=== PATIENT | male | born 1960 | race Caucasian/White ===

== ENCOUNTER 2018-06-15 11:02 | Emergency (ER) | payer MEDICARE ==
[~2018-06-15] VITALS: Ht 167.6 cm; Wt 73.9 kg
[~2018-06-15 11:02] MED LIST: Eliquis PO; ISOSORBIDE DINI30 MG PO; LIPITOR40 MG PO; Lopressor25 MG PO; MEDROL DOSEPAK4 MG PO; METHYLPREDNISONE4 MG PO; NKHM PO; OXYBUTYNIN5 MG PO; PROPAFENONE HC150 MG PO; SYMBICORT1 AE1 INH; TOBREX OPHTH S2.5 ML OPH; ULTRAM50 MG PO; VIBRAMYCIN100 MG PO; XARE20MG PO; Zestril,Prinivil5 MG PO
[2018-06-15] MEDS ORDERED: PREDNISONE10 MG PO (11:14)
== END 2018-06-15 11:44 | disposition home or self-care (01) ==
LOC: ED 11:02
DX: M77.9 Enthesopathy, unspecified (principal); Z79.899 Other long term (current) drug therapy

== ENCOUNTER 2018-08-21 11:51 | Inpatient (IN) | payer MEDICARE ==
[~2018-08-21] VITALS: Wt 69.9 kg
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
--- NOTE | ~2018-08-21 | EKG ---
[place], [place] ELECTROCARDIOGRAM REPORT NAME: ETHEL SWARTZ UNIT #: [id number] ROOM: 420 DOCTOR: THO DRAFT REPORT BIRTHDATE: [birth year] [facility] Test Date: 2018-08-21 Test Time: 12:19:48 Pat Name: ETHEL SWARTZ Department: Room: 420 Gender: M [employer]: RAD : 1960 Requested By: SUHAIL WOOTEN Order Number: [id number] Reading MD: Pamela Mayberry MD Measurements Intervals [place] Rate: 73 P: 67 VA: 147 QRS: 48 QRSD: 83 T: 49 QT: 390 QTc: 430 Interpretive Statements Sinus rhythm Normal ECG Electronically Signed On 08-23-2018 12:23:10 PDT by Pamela Mayberry MD CM:EKGRPT:ELECTROCARDIOGRAM REPORT [id number] SUHAIL NETTLES DRAFT REPORT SUHAIL WOOTEN MD
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
[~2018-08-21 11:51] MED LIST changes: +PREDNISONE10 MG PO
[2018-08-21 11:53] VITALS: BP 102/67
[2018-08-21 12:28] LABS: BASO % 0.1 % (0.0-1.0); EOS % 0.1 % (1.0-4.0); HEMATOCRIT 45.4 % (42.0-52.0); HEMOGLOBIN 15.7 g/dl (14.0-18.0); LYMPH # 1.7 10*3/uL (1.3-4.4); LYMPH % 19.5 % (27.0-41.0); MEAN CELL VOLUME 93.8 fl (80.0-94.0); MEAN CORPUSCULAR HGB 32.4 pg (27.0-31.0); MEAN CORPUSCULAR HGB CONC 34.6 g/dl (33.0-37.0); MEAN PLATELET VOLUME 9.4 fl (9.6-12.3); MONO # 0.8 10*3/uL (0.1-1.0); MONO % 8.7 % (3.0-9.0); NEUT # 6.2 10*3/uL (2.3-7.9); NEUT % 71.4 % (47.0-73.0); PLATELET COUNT AUTOMATED 144 10*3/uL (130-400); RED BLOOD COUNT 4.84 10*6/uL (4.50-5.90); RED CELL DISTRI WIDTH 12.9 % (0-14.5); WHITE BLOOD COUNT 8.6 10*3/uL (4.8-10.8)
[2018-08-21 12:41] LABS: ACT PARTIAL THROMBO TIME 25.7 SECONDS (20.8-31.5)
[2018-08-21 12:45] LABS: ALBUMIN 3.8 gm/dl (3.1-4.5); ALKALINE PHOSPHATASE 62 U/L (45-117); BUN 13 mg/dl (7-24); CHLORIDE 100 mmol/L (98-107); CREATININE 1.05 mg/dL (0.70-1.30); POTASSIUM 4.7 mmol/L (3.5-5.1); SGOT/AST 45 IU/L (3-35); SGPT/ALT 38 U/L (12-78); SODIUM 132 mmol/L (136-145)
[2018-08-21 12:46] LABS: ETHYL ALCOHOL < 3.0 mg/dl (<3); TROPONIN I < 0.015 ng/ml (<0.045)
[2018-08-21 13:19] LABS: BILIRUBIN NEGATIVE (NEGATIVE); BLOOD TRACE-INTACT (NEGATIVE); CLARITY CLEAR (CLEAR); COLOR YELLOW (YELLOW); GLUCOSE NEGATIVE (NEGATIVE); KETONE 1+ (NEGATIVE); LEUKO ESTERASE NEGATIVE (NEGATIVE); NITRITE NEGATIVE (NEGATIVE); SPECIFIC GRAVITY 1.015 (1.005-1.030); UROBILINOGEN 0.2 E.U./dl (0.2-1.0)
[2018-08-21 13:20] LABS: BACTERIA TRACE; EPITHELIAL CELLS 0-2; MUCOUS 1+; WBC 0-2 wbc/hpf (0-5)
[2018-08-21 15:19] VITALS: BP 110/70
[2018-08-21 16:20] VITALS: BP 120/72
[2018-08-21 16:40] VITALS: BP 102/70
[2018-08-21] MEDS ORDERED: CARVEDILOL6.25 MG PO (16:55)
[2018-08-21 20:00] VITALS: BP 98/71
[2018-08-22] VITALS: BP 92/46
[2018-08-22 06:46] LABS: BASO % 0.3 % (0.0-1.0); EOS # 0.1 10*3/uL (0.0-0.4); EOS % 0.8 % (1.0-4.0); HEMATOCRIT 44.3 % (42.0-52.0); LYMPH # 1.8 10*3/uL (1.3-4.4); LYMPH % 24.2 % (27.0-41.0); MEAN CELL VOLUME 94.1 fl (80.0-94.0); MEAN CORPUSCULAR HGB 31.8 pg (27.0-31.0); MEAN CORPUSCULAR HGB CONC 33.9 g/dl (33.0-37.0); MEAN PLATELET VOLUME 10.3 fl (9.6-12.3); MONO # 0.8 10*3/uL (0.1-1.0); MONO % 10.4 % (3.0-9.0); NEUT # 4.7 10*3/uL (2.3-7.9); NEUT % 63.6 % (47.0-73.0); PLATELET COUNT AUTOMATED 120 10*3/uL (130-400); RED BLOOD COUNT 4.71 10*6/uL (4.50-5.90); RED CELL DISTRI WIDTH 12.9 % (0-14.5); WHITE BLOOD COUNT 7.4 10*3/uL (4.8-10.8)
[2018-08-22 07:18] LABS: BUN 14 mg/dl (7-24); CHLORIDE 103 mmol/L (98-107); CHOLESTEROL 103 mg/dL (<200); CREATININE 0.94 mg/dL (0.70-1.30); FREE T4 1.47 ng/dl (0.76-1.46); HDL CHOLESTEROL 51 mg/dl (40-60); LDL CHOLESTEROL 40 mg/dL (9-159); PHOSPHOROUS 2.5 mg/dL (2.5-4.9); POTASSIUM 4.1 mmol/L (3.5-5.1); SODIUM 137 mmol/L (136-145); TRIGLYCERIDES 58 mg/dl (<150); VLDL CHOLESTEROL 12 mg/dL (6-40)
[2018-08-22 08:00] VITALS: BP 108/68
[2018-08-22 12:00] VITALS: BP 100/66
[2018-08-22 16:00] VITALS: BP 92/64
[2018-08-22 20:00] VITALS: BP 96/66
[2018-08-23] VITALS: BP 99/59
[2018-08-23 08:00] VITALS: BP 105/75
[2018-08-23 12:00] VITALS: BP 100/54
[2018-08-23 16:00] VITALS: BP 95/60
[2018-08-23 20:00] VITALS: BP 100/66
[2018-08-24] VITALS: BP 100/40; BP 100/60; BP 78/45
[2018-08-24 08:00] VITALS: BP 115/74
[2018-08-24 12:00] VITALS: BP 98/67
[2018-08-24] MEDS ORDERED: HYDROCODONE-AC1 EAC1 PO (12:55)
== END 2018-08-24 13:40 | disposition home health service (06) | DRG 205 ==
LOC: ED 11:51 → EDHOLD 15:15 → 4E 15:15
PROVIDERS: Emergency Medicine; Student in an Organized Health Care Education/Training Program
DX: S22.32XA Fracture of one rib, left side, initial encounter for closed fracture (principal); S72.115A Nondisplaced fracture of greater trochanter of left femur, initial encounter for closed fracture; E87.1 Hypo-osmolality and hyponatremia; I48.92 Unspecified atrial flutter; M16.12 Unilateral primary osteoarthritis, left hip; R74.0 Nonspecific elevation of levels of transaminase and lactic acid dehydrogenase [LDH]; I48.91 Unspecified atrial fibrillation; J44.9 Chronic obstructive pulmonary disease, unspecified; I10 Essential (primary) hypertension; R26.2 Difficulty in walking, not elsewhere classified; E83.41 Hypermagnesemia; Z83.6 Family history of other diseases of the respiratory system; E78.5 Hyperlipidemia, unspecified; R82.4 Acetonuria; D72.810 Lymphocytopenia; I25.10 Atherosclerotic heart disease of native coronary artery without angina pectoris; Z79.01 Long term (current) use of anticoagulants; Z98.41 Cataract extraction status, right eye; Z98.42 Cataract extraction status, left eye; Z95.5 Presence of coronary angioplasty implant and graft; Z71.6 Tobacco abuse counseling; Z72.0 Tobacco use; V69.9XXA Occupant (driver) (passenger) of heavy transport vehicle injured in unspecified traffic accident, initial encounter; Y93.89 Activity, other specified; Y92.89 Other specified places as the place of occurrence of the external cause; Y99.8 Other external cause status

== ENCOUNTER 2019-08-02 14:22 | Inpatient (IN) | payer MEDICARE ==
[~2019-08-02] VITALS: Ht 172.7 cm; Wt 69.5 kg
[~2019-08-02 14:22] MED LIST changes: +CARVEDILOL6.25 MG PO; +HYDROCODONE-AC1 EAC1 PO
[2019-08-02 14:56] VITALS: BP 102/77
[2019-08-02 15:19] LABS: BASO % 0.4 % (0.0-1.0); EOS # 0.1 10*3/uL (0.0-0.4); EOS % 1.3 % (1.0-4.0); HEMATOCRIT 50.4 % (42.0-52.0); HEMOGLOBIN 17.1 g/dl (14.0-18.0); LYMPH # 3.4 10*3/uL (1.3-4.4); LYMPH % 47.1 % (27.0-41.0); MEAN CELL VOLUME 96.9 fl (80.0-94.0); MEAN CORPUSCULAR HGB 32.9 pg (27.0-31.0); MEAN CORPUSCULAR HGB CONC 33.9 g/dl (33.0-37.0); MEAN PLATELET VOLUME 10.4 fl (9.6-12.3); MONO # 0.5 10*3/uL (0.1-1.0); MONO % 7.3 % (3.0-9.0); NEUT # 3.1 10*3/uL (2.3-7.9); NEUT % 43.8 % (47.0-73.0); PLATELET COUNT AUTOMATED 133 10*3/uL (130-400); RED CELL DISTRI WIDTH 13.5 % (0-14.5); WHITE BLOOD COUNT 7.2 10*3/uL (4.8-10.8)
[2019-08-02 15:34] LABS: ALBUMIN 3.8 gm/dl (3.1-4.5); ALKALINE PHOSPHATASE 81 U/L (45-117); BUN 15 mg/dl (7-24); CHLORIDE 108 mmol/L (98-107); CREATININE 1.08 mg/dL (0.70-1.30); POTASSIUM 4.2 mmol/L (3.5-5.1); SGOT/AST 17 IU/L (3-35); SGPT/ALT 33 U/L (12-78); SODIUM 140 mmol/L (136-145); TOTAL PROTEIN 6.6 gm/dL (6.4-8.2)
[2019-08-02 16:00] VITALS: BP 102/74
[2019-08-02 20:00] VITALS: BP 133/62; BP 94/69
[2019-08-02 22:15] VITALS: BP 92/62
[2019-08-02 23:25] VITALS: BP 96/60
[2019-08-03] VITALS (8 sets, daily range): BP systolic 88–112; BP diastolic 46–70
[2019-08-03 06:03] LABS: BASO % 0.3 % (0.0-1.0); EOS # 0.1 10*3/uL (0.0-0.4); HEMATOCRIT 45.4 % (42.0-52.0); HEMOGLOBIN 15.3 g/dl (14.0-18.0); LYMPH # 2.6 10*3/uL (1.3-4.4); LYMPH % 43.1 % (27.0-41.0); MEAN CELL VOLUME 95.4 fl (80.0-94.0); MEAN CORPUSCULAR HGB 32.1 pg (27.0-31.0); MEAN CORPUSCULAR HGB CONC 33.7 g/dl (33.0-37.0); MEAN PLATELET VOLUME 10.6 fl (9.6-12.3); MONO # 0.4 10*3/uL (0.1-1.0); MONO % 6.1 % (3.0-9.0); NEUT % 49.2 % (47.0-73.0); PLATELET COUNT AUTOMATED 108 10*3/uL (130-400); RED BLOOD COUNT 4.76 10*6/uL (4.50-5.90); RED CELL DISTRI WIDTH 13.5 % (0-14.5); WHITE BLOOD COUNT 6.1 10*3/uL (4.8-10.8)
[2019-08-03 06:26] LABS: BUN 16 mg/dl (7-24); CHLORIDE 109 mmol/L (98-107); CHOLESTEROL 89 mg/dL (<200); CREATININE 0.89 mg/dL (0.70-1.30); PHOSPHOROUS 3.4 mg/dL (2.5-4.9); POTASSIUM 4.2 mmol/L (3.5-5.1); SODIUM 141 mmol/L (136-145); TRIGLYCERIDES 67 mg/dl (<150); VLDL CHOLESTEROL 13 mg/dL (6-40)
[2019-08-03 06:36] LABS: HDL CHOLESTEROL 40 mg/dl (40-60); LDL CHOLESTEROL 36 mg/dL (9-159); THYROID STIM HORMONE (HS) 0.815 uIU/ml (0.358-4.75)
[2019-08-03 06:42] LABS: ACT PARTIAL THROMBO TIME 35.5 SECONDS (20.0-32.1); INTERNATIONAL NORM RATIO 1.1 (2.0-3.5)
[2019-08-03 07:22] LABS: VITAMIN D, 25-HYDROXY 31.1 ng/mL (30-100)
[2019-08-04] VITALS: BP 109/64
[2019-08-04 12:00] VITALS: BP 94/62
[2019-08-04] MEDS ORDERED: PROPAFENONE HC225 MG PO (12:58)
[2019-08-04] MEDS ORDERED: XARE20MG PO (12:58)
[2019-08-04] MEDS ORDERED: LOPRESSOR25 MG PO (12:59)
== END 2019-08-04 13:54 | disposition home or self-care (01) | DRG 310 ==
LOC: 4E 14:22
PROVIDERS: Student in an Organized Health Care Education/Training Program; ADMIT Internal Medicine
DX: I48.91 Unspecified atrial fibrillation (principal); I10 Essential (primary) hypertension; I25.10 Atherosclerotic heart disease of native coronary artery without angina pectoris; I48.92 Unspecified atrial flutter; E78.5 Hyperlipidemia, unspecified; J43.9 Emphysema, unspecified; I95.9 Hypotension, unspecified; E53.8 Deficiency of other specified B group vitamins; Z98.42 Cataract extraction status, left eye; Z98.41 Cataract extraction status, right eye; I25.2 Old myocardial infarction; Z72.0 Tobacco use; Z95.5 Presence of coronary angioplasty implant and graft; Z82.49 Family history of ischemic heart disease and other diseases of the circulatory system; Z83.6 Family history of other diseases of the respiratory system; Z84.89 Family history of other specified conditions; Z79.899 Other long term (current) drug therapy; Z71.6 Tobacco abuse counseling

== ENCOUNTER → 2019-09-27 | Outpatient (CLI) | payer MEDICARE ==
[~2019-09-27] MED LIST changes: +LOPRESSOR25 MG PO; +PROPAFENONE HC225 MG PO
== END | disposition home or self-care (01) ==
LOC: LAB 16:08
DX: I48.91 Unspecified atrial fibrillation (principal)

== ENCOUNTER 2020-05-06 12:53 | Emergency (ER) | payer MEDICARE ==
[~2020-05-06] VITALS: Ht 172.7 cm; Wt 76.2 kg
[2020-05-06 14:01] LABS: BASO % 0.1 % (0.0-1.0); EOS # 0.1 10*3/uL (0.0-0.4); EOS % 0.5 % (1.0-4.0); HEMATOCRIT 46.6 % (42.0-52.0); LYMPH # 2.1 10*3/uL (1.3-4.4); LYMPH % 15.2 % (27.0-41.0); MEAN CELL VOLUME 96.7 fl (80.0-94.0); MEAN CORPUSCULAR HGB 32.2 pg (27.0-31.0); MEAN CORPUSCULAR HGB CONC 33.3 g/dl (33.0-37.0); MEAN PLATELET VOLUME 9.9 fl (9.6-12.3); MONO # 1.4 10*3/uL (0.1-1.0); MONO % 10.1 % (3.0-9.0); NEUT # 10.1 10*3/uL (2.3-7.9); NEUT % 73.7 % (47.0-73.0); PLATELET COUNT AUTOMATED 125 10*3/uL (130-400); RED BLOOD COUNT 4.82 10*6/uL (4.50-5.90); RED CELL DISTRI WIDTH 13.1 % (0-14.5); WHITE BLOOD COUNT 13.7 10*3/uL (4.8-10.8)
[2020-05-06 14:17] LABS: ALBUMIN 3.4 gm/dl (3.1-4.5); ALKALINE PHOSPHATASE 64 U/L (45-117); BUN 14 mg/dl (7-24); CHLORIDE 106 mmol/L (98-107); POTASSIUM 4.7 mmol/L (3.5-5.1); SGOT/AST 14 IU/L (3-35); SGPT/ALT 25 U/L (12-78); SODIUM 137 mmol/L (136-145); TOTAL PROTEIN 6.7 gm/dL (6.4-8.2)
[2020-05-06 14:41] LABS: BILIRUBIN NEGATIVE (NEGATIVE); BLOOD 3+ (NEGATIVE); CLARITY SL CLOUDY (CLEAR); COLOR YELLOW (YELLOW); GLUCOSE NEGATIVE (NEGATIVE); KETONE NEGATIVE (NEGATIVE); UROBILINOGEN 0.2 E.U./dl (0.2-1.0)
[2020-05-06 14:42] LABS: LEUKO ESTERASE 1+ (NEGATIVE); NITRITE NEGATIVE (NEGATIVE)
[2020-05-06 14:51] LABS: BACTERIA 2+; EPITHELIAL CELLS 0-2; MUCOUS 1+; RBC 0-2 rbc/hpf (0-2); WBC TNTC wbc/hpf (0-5)
[2020-05-06] MEDS ORDERED: SEPTDS PO (15:11)
== END 2020-05-06 15:50 | disposition home or self-care (01) ==
LOC: ED 12:53
PROVIDERS: Physician Assistant
DX: N39.0 Urinary tract infection, site not specified (principal); I25.2 Old myocardial infarction; I25.10 Atherosclerotic heart disease of native coronary artery without angina pectoris; I11.0 Hypertensive heart disease with heart failure; I50.9 Heart failure, unspecified; J44.9 Chronic obstructive pulmonary disease, unspecified; I48.92 Unspecified atrial flutter; E78.5 Hyperlipidemia, unspecified; Z79.899 Other long term (current) drug therapy

== ENCOUNTER → 2020-11-07 | Outpatient (CLI) | payer MEDICARE ==
[~2020-11-07] MED LIST changes: +SEPTDS PO
[2020-11-07 10:45] LABS: BASO % 0.4 % (0.0-1.0); EOS # 0.1 10*3/uL (0.0-0.4); HEMATOCRIT 49.7 % (42.0-52.0); LYMPH # 2.3 10*3/uL (1.3-4.4); LYMPH % 33.5 % (27.0-41.0); MEAN CELL VOLUME 95.2 fl (80.0-94.0); MEAN CORPUSCULAR HGB 30.8 pg (27.0-31.0); MEAN CORPUSCULAR HGB CONC 32.4 g/dl (33.0-37.0); MEAN PLATELET VOLUME 9.9 fl (9.6-12.3); MONO # 0.5 10*3/uL (0.1-1.0); MONO % 7.9 % (3.0-9.0); NEUT # 3.9 10*3/uL (2.3-7.9); NEUT % 57.1 % (47.0-73.0); PLATELET COUNT AUTOMATED 153 10*3/uL (130-400); RED BLOOD COUNT 5.22 10*6/uL (4.50-5.90); WHITE BLOOD COUNT 6.8 10*3/uL (4.8-10.8)
[2020-11-07 11:21] LABS: ALBUMIN 3.6 gm/dl (3.1-4.5); BUN 14 mg/dl (7-24); CHLORIDE 107 mmol/L (98-107); CREATININE 1.05 mg/dL (0.70-1.30); POTASSIUM 4.7 mmol/L (3.5-5.1); SGOT/AST 17 IU/L (3-35); SGPT/ALT 33 U/L (12-78); SODIUM 138 mmol/L (136-145)
[2020-11-07 11:36] LABS: ALKALINE PHOSPHATASE 78 U/L (45-117); DIGOXIN 2.03 ng/ml (0.8-2.0); TOTAL PROTEIN 6.7 gm/dL (6.4-8.2)
== END | disposition home or self-care (01) ==
LOC: LAB 10:19
PROVIDERS: ATTEND Internal Medicine Cardiovascular Disease
DX: I25.10 Atherosclerotic heart disease of native coronary artery without angina pectoris (principal)

== ENCOUNTER 2022-01-25 08:08 | Emergency (ER) | payer MEDICARE, OTHER ==
[~2022-01-25] VITALS: Ht 162.5 cm; Wt 70.3 kg
[2022-01-25 08:36] LABS: BILIRUBIN Negative (Negative); BLOOD 2+ (Negative); CLARITY Cloudy (Clear); COLOR Yellow (Yellow); GLUCOSE Negative (Negative); KETONE Negative (Negative); LEUKO ESTERASE 3+ (Negative); NITRITE Negative (Negative)
[2022-01-25 09:08] LABS: BACTERIA TRACE; MUCOUS TRACE; WBC 16-20 wbc/hpf (0-5)
[2022-01-25 09:24] LABS: BASO % 0.1 % (0.0-1.0); EOS % 0.1 % (1.0-4.0); HEMATOCRIT 48.3 % (42.0-52.0); LYMPH # 1.4 10*3/uL (1.3-4.4); LYMPH % 10.5 % (27.0-41.0); MEAN CELL VOLUME 93.2 fl (80.0-94.0); MEAN CORPUSCULAR HGB 31.5 pg (27.0-31.0); MEAN CORPUSCULAR HGB CONC 33.7 g/dl (33.0-37.0); MEAN PLATELET VOLUME 9.7 fl (9.6-12.3); MONO # 0.8 10*3/uL (0.1-1.0); MONO % 5.6 % (3.0-9.0); NEUT # 11.5 10*3/uL (2.3-7.9); NEUT % 83.4 % (47.0-73.0); PLATELET COUNT AUTOMATED 137 10*3/uL (130-400); RED BLOOD COUNT 5.18 10*6/uL (4.50-5.90); RED CELL DISTRI WIDTH 13.1 % (0-14.5); WHITE BLOOD COUNT 13.8 10*3/uL (4.8-10.8)
[2022-01-25 09:36] LABS: BUN 12 mg/dl (7-24); CHLORIDE 106 mmol/L (98-107); CREATININE 1.02 mg/dL (0.70-1.30); POTASSIUM 4.6 mmol/L (3.5-5.1); SODIUM 137 mmol/L (136-145)
[2022-01-25] MEDS ORDERED: MACROBID100 M1 PO (09:46)
== END 2022-01-25 09:48 | disposition home or self-care (01) ==
LOC: ED 08:08
PROVIDERS: Emergency Medicine
DX: R30.0 Dysuria (principal); J44.9 Chronic obstructive pulmonary disease, unspecified; E78.5 Hyperlipidemia, unspecified; F17.210 Nicotine dependence, cigarettes, uncomplicated; I10 Essential (primary) hypertension; I48.91 Unspecified atrial fibrillation; I25.2 Old myocardial infarction; Z79.899 Other long term (current) drug therapy; Z98.890 Other specified postprocedural states

== ENCOUNTER 2023-03-12 11:30 | Emergency (ER) | payer OTHER ==
[~2023-03-12] VITALS: Ht 162.5 cm; Wt 72.1 kg
[~2023-03-12 11:30] MED LIST changes: +MACROBID100 M1 PO
[2023-03-12 13:09] LABS: BASO % 0.3 % (0.0-1.0); EOS # 0.1 10*3/uL (0.0-0.4); EOS % 1.5 % (1.0-4.0); HEMATOCRIT 54.8 % (42.0-52.0); LYMPH # 3.2 10*3/uL (1.3-4.4); LYMPH % 43.1 % (27.0-41.0); MEAN CELL VOLUME 96.3 fl (80.0-94.0); MEAN CORPUSCULAR HGB 31.8 pg (27.0-31.0); MEAN PLATELET VOLUME 10.4 fl (9.6-12.3); MONO # 0.4 10*3/uL (0.1-1.0); MONO % 5.3 % (3.0-9.0); NEUT # 3.7 10*3/uL (2.3-7.9); NEUT % 49.7 % (47.0-73.0); PLATELET COUNT AUTOMATED 151 10*3/uL (130-400); RED BLOOD COUNT 5.69 10*6/uL (4.50-5.90); WHITE BLOOD COUNT 7.5 10*3/uL (4.8-10.8)
[2023-03-12 13:26] LABS: ALKALINE PHOSPHATASE 95 U/L (46-116); BUN 16 mg/dl (9-23); CHLORIDE 106 mmol/L (98-107); LIPASE 39 U/L (12-53); POTASSIUM 5.1 mmol/L (3.4-5.1); SGPT/ALT 27 U/L (10-49); TOTAL PROTEIN 6.8 gm/dL (6.0-8.0)
[2023-03-12 13:34] LABS: ACT PARTIAL THROMBO TIME 37.5 SECONDS (20.0-32.1); INTERNATIONAL NORM RATIO 1.3 (2.0-3.5)
== END 2023-03-12 15:59 | disposition left against medical advice (07) ==
LOC: ED 11:30
PROVIDERS: Emergency Medicine
DX: I48.20 Chronic atrial fibrillation, unspecified (principal); I25.2 Old myocardial infarction; I25.10 Atherosclerotic heart disease of native coronary artery without angina pectoris; I50.9 Heart failure, unspecified; I11.0 Hypertensive heart disease with heart failure; J44.9 Chronic obstructive pulmonary disease, unspecified; Z98.42 Cataract extraction status, left eye; Z98.41 Cataract extraction status, right eye; Z98.890 Other specified postprocedural states; F17.200 Nicotine dependence, unspecified, uncomplicated

== ENCOUNTER 2023-03-17 15:31 | Inpatient (IN) | payer OTHER ==
[~2023-03-17] VITALS: Ht 165.1 cm; Wt 72.1 kg
[2023-03-17 16:01] LABS: BASO % 0.4 % (0.0-1.0); EOS # 0.1 10*3/uL (0.0-0.4); EOS % 1.8 % (1.0-4.0); HEMATOCRIT 52.2 % (42.0-52.0); LYMPH % 39.9 % (27.0-41.0); MEAN CELL VOLUME 95.8 fl (80.0-94.0); MEAN CORPUSCULAR HGB 32.7 pg (27.0-31.0); MEAN CORPUSCULAR HGB CONC 34.1 g/dl (33.0-37.0); MEAN PLATELET VOLUME 10.1 fl (9.6-12.3); MONO # 0.7 10*3/uL (0.1-1.0); MONO % 8.9 % (3.0-9.0); NEUT # 3.7 10*3/uL (2.3-7.9); NEUT % 48.7 % (47.0-73.0); PLATELET COUNT AUTOMATED 135 10*3/uL (130-400); RED BLOOD COUNT 5.45 10*6/uL (4.50-5.90); RED CELL DISTRI WIDTH 13.8 % (0-14.5); WHITE BLOOD COUNT 7.6 10*3/uL (4.8-10.8)
[2023-03-17 16:03] VITALS: BP 117/87
[2023-03-17 16:12] LABS: ACT PARTIAL THROMBO TIME 39.1 SECONDS (20.0-32.1); INTERNATIONAL NORM RATIO 1.3 (2.0-3.5)
[2023-03-17 16:27] LABS: ALKALINE PHOSPHATASE 91 U/L (46-116); BUN 18 mg/dl (9-23); CHLORIDE 106 mmol/L (98-107); LIPASE 46 U/L (12-53); POTASSIUM 4.6 mmol/L (3.4-5.1); SGPT/ALT 22 U/L (10-49); TOTAL PROTEIN 6.6 gm/dL (6.0-8.0)
[2023-03-17] MEDS ORDERED: METOPROLOL SUCC50 M1 PO (18:12)
[2023-03-17] MEDS ORDERED: VITAMIN D350 MCG PO (18:13)
[2023-03-17] MEDS ORDERED: SOTALOL HYDROC120 MG PO (18:13)
[2023-03-17] MEDS ORDERED: CARTIA XT120 MG PO (18:14)
[2023-03-17] MEDS ORDERED: PROVENTIL HFA6.7 GM INH (18:17)
[2023-03-17 21:35] VITALS: BP 117/87
[2023-03-17 22:40] VITALS: BP 114/66
[2023-03-17 23:08] VITALS: BP 114/66
[2023-03-18] VITALS (14 sets, daily range): BP systolic 96–115; BP diastolic 68–83
[2023-03-18 05:31] LABS: ALKALINE PHOSPHATASE 82 U/L (46-116); BUN 14 mg/dl (9-23); CHLORIDE 106 mmol/L (98-107); POTASSIUM 4.6 mmol/L (3.4-5.1); SGPT/ALT 22 U/L (10-49); TOTAL PROTEIN 6.3 gm/dL (6.0-8.0)
[2023-03-18 06:13] LABS: BASO % 0.5 % (0.0-1.0); EOS # 0.2 10*3/uL (0.0-0.4); EOS % 2.3 % (1.0-4.0); LYMPH # 2.6 10*3/uL (1.3-4.4); LYMPH % 39.1 % (27.0-41.0); MEAN CORPUSCULAR HGB 32.1 pg (27.0-31.0); MEAN CORPUSCULAR HGB CONC 33.4 g/dl (33.0-37.0); MEAN PLATELET VOLUME 10.6 fl (9.6-12.3); MONO # 0.5 10*3/uL (0.1-1.0); MONO % 8.1 % (3.0-9.0); NEUT # 3.3 10*3/uL (2.3-7.9); NEUT % 49.7 % (47.0-73.0); PLATELET COUNT AUTOMATED 135 10*3/uL (130-400); RED BLOOD COUNT 5.52 10*6/uL (4.50-5.90); RED CELL DISTRI WIDTH 13.9 % (0-14.5); WHITE BLOOD COUNT 6.6 10*3/uL (4.8-10.8)
[2023-03-18] MEDS ORDERED: ATORVASTATIN CA40 M1 PO (09:23)
[2023-03-19] VITALS: BP 119/75
[2023-03-19 06:43] LABS: ALKALINE PHOSPHATASE 92 U/L (46-116); BASO % 0.4 % (0.0-1.0); BUN 12 mg/dl (9-23); CHLORIDE 107 mmol/L (98-107); EOS # 0.1 10*3/uL (0.0-0.4); EOS % 1.5 % (1.0-4.0); HEMATOCRIT 53.7 % (42.0-52.0); LYMPH # 2.2 10*3/uL (1.3-4.4); LYMPH % 26.6 % (27.0-41.0); MEAN CELL VOLUME 96.4 fl (80.0-94.0); MEAN CORPUSCULAR HGB 32.5 pg (27.0-31.0); MEAN CORPUSCULAR HGB CONC 33.7 g/dl (33.0-37.0); MEAN PLATELET VOLUME 10.6 fl (9.6-12.3); MONO # 0.7 10*3/uL (0.1-1.0); MONO % 8.2 % (3.0-9.0); NEUT # 5.2 10*3/uL (2.3-7.9); NEUT % 63.1 % (47.0-73.0); PLATELET COUNT AUTOMATED 121 10*3/uL (130-400); POTASSIUM 5.3 mmol/L (3.4-5.1); RED BLOOD COUNT 5.57 10*6/uL (4.50-5.90); RED CELL DISTRI WIDTH 13.7 % (0-14.5); SGPT/ALT 31 U/L (10-49); TOTAL PROTEIN 6.2 gm/dL (6.0-8.0); WHITE BLOOD COUNT 8.2 10*3/uL (4.8-10.8)
[2023-03-19 08:00] VITALS: BP 110/68
[2023-03-19 12:00] VITALS: BP 112/64
[2023-03-19] MEDS ORDERED: METOPROLOL SUCC50 M1 PO (13:57)
[2023-03-19] MEDS ORDERED: JARDIANCE10 MG PO (13:57)
[2023-03-19] MEDS ORDERED: SOTALOL HYDROC120 MG PO (13:57)
[2023-03-19] MEDS ORDERED: CARTIA XT120 MG PO (13:57)
== END 2023-03-19 16:39 | disposition home or self-care (01) | DRG 310 ==
LOC: ED 15:31 → EDHOLD 17:14 → 4E 17:14 → EDHOLD 19:46 → 4E 03-18 14:45
PROVIDERS: Emergency Medicine; ADMIT Internal Medicine; ATTEND Internal Medicine
DX: I48.91 Unspecified atrial fibrillation (principal); I10 Essential (primary) hypertension; I48.92 Unspecified atrial flutter; I48.19 Other persistent atrial fibrillation; I42.9 Cardiomyopathy, unspecified; D75.1 Secondary polycythemia; E53.8 Deficiency of other specified B group vitamins; J44.9 Chronic obstructive pulmonary disease, unspecified; I25.10 Atherosclerotic heart disease of native coronary artery without angina pectoris; E78.5 Hyperlipidemia, unspecified; F17.210 Nicotine dependence, cigarettes, uncomplicated; Z71.6 Tobacco abuse counseling; Z95.5 Presence of coronary angioplasty implant and graft; Z79.51 Long term (current) use of inhaled steroids

== ENCOUNTER 2024-09-27 14:52 | Emergency (ER) | payer OTHER ==
[~2024-09-27] VITALS: Ht 162.5 cm; Wt 73.5 kg
[~2024-09-27 14:52] MED LIST changes: +ATORVASTATIN CA40 M1 PO; +CARTIA XT120 MG PO; +JARDIANCE10 MG PO; +METOPROLOL SUCC50 M1 PO; +PROVENTIL HFA6.7 GM INH; +SOTALOL HYDROC120 MG PO; +VITAMIN D350 MCG PO
[2024-09-27] MEDS ORDERED: Tdap Vaccine 0.5 ML SYR (Adult Vaccine) IM ONE (15:45)
[2024-09-27] MEDS ORDERED: Rabies Vaccine 1 ML VIAL IM ONE (15:45)
[2024-09-27] MEDS ORDERED: Rabies Immune Globulin 300 UNIT/2 ML VIAL IM ONE (15:45)
[2024-09-27] MEDS ORDERED: AMOX-CLAV 875-1 EACH PO (15:48)
[2024-09-27] MEDS ORDERED: Rabies Immune Globulin 150O UNIT/10 ML IM ONE (15:50)
== END 2024-09-27 16:20 | disposition home or self-care (01) ==
LOC: ED 14:52
DX: S61.432A Puncture wound without foreign body of left hand, initial encounter (principal); L03.114 Cellulitis of left upper limb; F17.200 Nicotine dependence, unspecified, uncomplicated; Z98.890 Other specified postprocedural states; W54.0XXA Bitten by dog, initial encounter; Y93.89 Activity, other specified; Y92.007 Garden or yard of unspecified non-institutional (private) residence as the place of occurrence of the external cause; Y99.8 Other external cause status

== ENCOUNTER 2024-09-30 10:35 | Emergency (ER) | payer OTHER ==
[~2024-09-30] VITALS: Ht 162.5 cm; Wt 73.5 kg
[~2024-09-30 10:35] MED LIST changes: +AMOX-CLAV 875-1 EACH PO
[2024-09-30] MEDS ORDERED: Rabies Vaccine 1 ML VIAL IM ONE ×2 (10:50→11:00)
[2024-09-30] MEDS ORDERED: CLINDAMYCIN HCL 300 MG CAPSULE PO ONE (11:00)
[2024-09-30] MEDS ORDERED: CLINDAMYCIN HC300 MG PO (11:13)
== END 2024-09-30 10:58 | disposition home or self-care (01) ==
LOC: ED 10:35
DX: L03.114 Cellulitis of left upper limb (principal); S61.452D Open bite of left hand, subsequent encounter; Z20.3 Contact with and (suspected) exposure to rabies; I25.2 Old myocardial infarction; I11.0 Hypertensive heart disease with heart failure; I25.10 Atherosclerotic heart disease of native coronary artery without angina pectoris; I50.9 Heart failure, unspecified; J44.9 Chronic obstructive pulmonary disease, unspecified; E78.5 Hyperlipidemia, unspecified; F17.200 Nicotine dependence, unspecified, uncomplicated; Z98.890 Other specified postprocedural states

== ENCOUNTER 2024-10-04 14:27 | Inpatient (IN) | payer OTHER ==
[~2024-10-04] VITALS: Ht 162.6 cm; Wt 68.0 kg
[~2024-10-04 14:27] MED LIST changes: +CLINDAMYCIN HC300 MG PO
[2024-10-04 14:38] VITALS: BP 105/88
[2024-10-04] MEDS ORDERED: Piperacillin Sodium/Tazobact 50 ML IV ONE (16:35)
[2024-10-04] MEDS ORDERED: Vancomycin Hydrochloride 250 ML IV ONE (16:35)
[2024-10-04 18:40] VITALS: BP 108/84
[2024-10-05 02:09] VITALS: BP 102/56
[2024-10-05 05:42] VITALS: BP 112/66
[2024-10-05] MEDS ORDERED: Piperacillin Sodium/Tazobact 50 ML IV SCH (08:30)
[2024-10-05] MEDS ORDERED: Vancomycin Hydrochloride 1,000 MG in SODIUM CHLORIDE 0.9% 250 ML IV SCH (10:00)
[2024-10-05] MEDS ORDERED: DILTIAZEM CD 120 MG CAP PO SCH (10:00)
[2024-10-05] MEDS ORDERED: RIVAROXABAN 20 MG TAB PO SCH (10:00)
[2024-10-05] MEDS ORDERED: Sotalol Hydrochloride 80 MG TAB PO SCH ×2 (10:00)
[2024-10-05] MEDS ORDERED: Vitamin D 1,000 IU TAB (25 MCG) PO SCH (10:00)
[2024-10-05] MEDS ORDERED: METOPROLOL SUCCINATE XR 50 MG TAB PO SCH ×2 (10:00)
[2024-10-05] MEDS ORDERED: EMPAGLIFLOZIN 10 MG TABLET PO SCH (10:00)
[2024-10-05 12:00] VITALS: BP 118/72
[2024-10-05 16:00] VITALS: BP 107/66
[2024-10-05] MEDS ORDERED: ATORVASTATIN CALCIUM 40 MG TABLET PO SCH (18:00)
[2024-10-05 20:00] VITALS: BP 109/68
[2024-10-06] VITALS: BP 109/70
[2024-10-06 06:31] LABS: BASO % 0.4 % (0.0-1.0); EOS # 0.2 10*3/uL (0.0-0.4); EOS % 3.3 % (1.0-4.0); HEMATOCRIT 45.2 % (42.0-52.0); MEAN CELL VOLUME 91.1 fl (80.0-94.0); MEAN CORPUSCULAR HGB 30.8 pg (27.0-31.0); MEAN CORPUSCULAR HGB CONC 33.8 g/dl (33.0-37.0); MEAN PLATELET VOLUME 9.8 fl (9.6-12.3); MONO # 0.6 10*3/uL (0.1-1.0); MONO % 11.8 % (3.0-9.0); NEUT # 2.2 10*3/uL (2.3-7.9); NEUT % 45.5 % (47.0-73.0); PLATELET COUNT AUTOMATED 161 10*3/uL (130-400); RED BLOOD COUNT 4.96 10*6/uL (4.50-5.90); RED CELL DISTRI WIDTH 12.5 % (0-14.5); WHITE BLOOD COUNT 4.8 10*3/uL (4.8-10.8)
[2024-10-06 06:55] LABS: ALKALINE PHOSPHATASE 87 U/L (46-116); BUN 12 mg/dl (9-23); CHLORIDE 106 mmol/L (98-107); POTASSIUM 4.4 mmol/L (3.4-5.1); SGPT/ALT 22 U/L (5-49); TOTAL PROTEIN 6.3 gm/dL (6.0-8.0)
[2024-10-06 08:00] VITALS: BP 115/76
[2024-10-06 12:00] VITALS: BP 106/67
[2024-10-06 16:00] VITALS: BP 109/72
[2024-10-06 20:00] VITALS: BP 110/69; BP 120/70
[2024-10-07] VITALS: BP 108/63
[2024-10-07 08:00] VITALS: BP 104/65
[2024-10-07 12:00] VITALS: BP 104/67
[2024-10-07 16:00] VITALS: BP 108/65
[2024-10-07 20:00] VITALS: BP 114/70
[2024-10-08] VITALS: BP 120/62
[2024-10-08 06:48] LABS: BUN 10 mg/dl (9-23); CHLORIDE 108 mmol/L (98-107); POTASSIUM 3.9 mmol/L (3.4-5.1)
[2024-10-08 06:55] LABS: BASO % 0.2 % (0.0-1.0); EOS # 0.2 10*3/uL (0.0-0.4); EOS % 3.2 % (1.0-4.0); HEMATOCRIT 45.5 % (42.0-52.0); MEAN CELL VOLUME 92.9 fl (80.0-94.0); MEAN CORPUSCULAR HGB 31.2 pg (27.0-31.0); MEAN CORPUSCULAR HGB CONC 33.6 g/dl (33.0-37.0); MEAN PLATELET VOLUME 10.1 fl (9.6-12.3); MONO # 0.5 10*3/uL (0.1-1.0); MONO % 7.9 % (3.0-9.0); NEUT # 3.4 10*3/uL (2.3-7.9); NEUT % 53.9 % (47.0-73.0); PLATELET COUNT AUTOMATED 170 10*3/uL (130-400); RED CELL DISTRI WIDTH 12.6 % (0-14.5); WHITE BLOOD COUNT 6.2 10*3/uL (4.8-10.8)
[2024-10-08 08:00] VITALS: BP 113/75
[2024-10-08 12:00] VITALS: BP 116/72
[2024-10-08] MEDS ORDERED: LEVOFLOXACIN750 M2 PO (12:19)
== END 2024-10-08 13:42 | disposition home or self-care (01) | DRG 603 ==
LOC: ED 14:27 → EDHOLD 17:04 → 4E 17:04
PROVIDERS: ADMIT Internal Medicine; ATTEND Internal Medicine
DX: L03.114 Cellulitis of left upper limb (principal); E78.5 Hyperlipidemia, unspecified; E55.9 Vitamin D deficiency, unspecified; I48.91 Unspecified atrial fibrillation; I25.5 Ischemic cardiomyopathy; J44.9 Chronic obstructive pulmonary disease, unspecified; I25.10 Atherosclerotic heart disease of native coronary artery without angina pectoris; Z98.41 Cataract extraction status, right eye; W54.0XXA Bitten by dog, initial encounter; Z78.9 Other specified health status; Y93.89 Activity, other specified; Y92.89 Other specified places as the place of occurrence of the external cause; Y99.8 Other external cause status; Z95.5 Presence of coronary angioplasty implant and graft; Z79.899 Other long term (current) drug therapy; Z82.49 Family history of ischemic heart disease and other diseases of the circulatory system; Z82.5 Family history of asthma and other chronic lower respiratory diseases

== ENCOUNTER 2024-10-11 12:34 | Emergency (ER) | payer OTHER ==
[~2024-10-11] VITALS: Ht 180.3 cm; Wt 77.1 kg
[~2024-10-11 12:34] MED LIST changes: +LEVOFLOXACIN750 M2 PO
[2024-10-11] MEDS ORDERED: Rabies Vaccine 1 ML VIAL IM ONE (13:30)
== END 2024-10-11 13:27 | disposition home or self-care (01) ==
LOC: ED 12:34
DX: Z23 Encounter for immunization (principal); F17.290 Nicotine dependence, other tobacco product, uncomplicated; Z98.890 Other specified postprocedural states

== ENCOUNTER 2025-09-15 14:37 | Emergency (ER) | payer OTHER ==
[~2025-09-15] VITALS: Ht 162.5 cm; Wt 68.9 kg
[2025-09-15] MEDS ORDERED: LIDOCAINE1 EACH T (16:01)
[2025-09-15] MEDS ORDERED: PREDNISONE20 M1 PO (16:01)
[2025-09-15] MEDS ORDERED: METHOCARBAMOL500 M1 PO (16:01)
[2025-09-16] MEDS ORDERED: LIDOCAINE 1 EA PATCH T SCH (10:00)
== END 2025-09-15 16:08 | disposition home or self-care (01) ==
LOC: ED 14:37
DX: S39.012A Strain of muscle, fascia and tendon of lower back, initial encounter (principal); Z98.890 Other specified postprocedural states; X58.XXXA Exposure to other specified factors, initial encounter; Y93.89 Activity, other specified; Y92.89 Other specified places as the place of occurrence of the external cause; Y99.8 Other external cause status